=== PATIENT | female | born 1965 | race Caucasian/White ===

== ENCOUNTER 2018-01-16 07:20 | Outpatient (CLI) | payer MEDICARE, OTHER ==
[~2018-01-16 07:20] MED LIST: ASPI-611 PO; CARB1TAB23 PO; CARB1TAB42 PO; HYDR-565 PO; METO50TA7 PO; RASA1TAB4 PO
== END 2018-01-16 23:59 | disposition home or self-care (01) ==
LOC: RT 07:20
PROVIDERS: ATTEND Internal Medicine
DX: R06.02 Shortness of breath (principal)
CPT/HCPCS: 85018; 94010; 94727; 94729

== ENCOUNTER 2019-02-27 12:29 | Emergency (ER) | payer MEDICARE, OTHER ==
[~2019-02-27] VITALS: Ht 165.1 cm; Wt 27.3 kg
[~2019-02-27 12:29] MED LIST changes: +HYDR-4353 PO; -HYDR-565 PO
[2019-02-27] MEDS ORDERED: morphine 4 MG/ML inj SYRINge IV ONE (13:35)
[2019-02-27 13:59] LABS: BASOPHILS % (AUTO) 0.5 % (0-1); EOSINOPHILS # (AUTO) 0.1 X10'3 (0-0.9); EOSINOPHILS % (AUTO) 1.1 % (0-6); HEMATOCRIT 40.1 % (35.0-45.0); HEMOGLOBIN 13.8 g/dl (12.0-16.0); LYMPHOCYTES # (AUTO) 2.2 X10'3 (1.1-4.8); LYMPHOCYTES % (AUTO) 23.9 % (21-51); MEAN CORPUSCULAR HEMOGLOBIN 30.4 PG (27.0-31.0); MEAN CORPUSCULAR HGB CONC 34.3 g/dL (33.0-36.5); MEAN CORPUSCULAR VOLUME 88.7 FL (78-98); MEAN PLATELET VOLUME 8.9 FL (7.4-10.4); MONOCYTES # (AUTO) 0.6 X10'3 (0-0.9); MONOCYTES % (AUTO) 5.9 % (2-12); NEUTROPHILS # (AUTO) 6.4 X10'3 (1.8-7.7); NEUTROPHILS % (AUTO) 68.6 % (42-75); PLATELET COUNT 268 X10'3 (140-440); RED BLOOD COUNT 4.52 X10'6 (4.20-5.60); WHITE BLOOD COUNT 9.3 X10'3 (4.5-11.0)
[2019-02-27 14:09] LABS: ALANINE AMINOTRANSFERASE 10 U/L (12-78); ALBUMIN 4.1 G/DL (3.4-5.0); ALBUMIN/GLOBULIN RATIO 1.4 (1.1-1.5); ALKALINE PHOSPHATASE 90 IU/L (46-116); ANION GAP 11 (8-16); ASPARTATE AMINO TRANSFERASE 18 U/L (10-37); BILIRUBIN,TOTAL 0.9 MG/DL (0.1-1.0); BLOOD UREA NITROGEN 25 MG/DL (7-18); BUN/CREATININE RATIO 32.1 (6.6-38.0); CHLORIDE 111 MMOL/L (99-107); CREATININE 0.78 MG/DL (0.40-0.90); GLUCOSE 95 MG/DL (70-104); POTASSIUM 3.1 MMOL/L (3.5-5.1); SODIUM 146 MMOL/L (135-145); TOTAL CARBON DIOXIDE 24.4 MMOL/L (24-32); TOTAL PROTEIN 7.1 G/DL (6.4-8.2); eGFR 77 ML/MIN
[2019-02-27 14:42] LABS: CLARITY,URINE CLOUDY (Clear); COLOR,URINE YELLOW (Yellow); GLUCOSE, URINE NEGATIVE (Neg); KETONES,URINE 15 mg/dl (Neg); LEUKOCYTE ESTERASE ,URINE NEGATIVE (Neg); NITRITES, URINE NEGATIVE (Neg); OCCULT BLOOD,URINE NEGATIVE (Neg); PH,URINE 5.5 (4.8-8.0); PROTEIN,URINE TRACE mg/dl (Neg)
[2019-02-27 14:47] LABS: UA COLLECTION TYPE CLN CATCH MIDSTREAM
[2019-02-27 14:48] LABS: BACTERIA,URINE 2+ /HPF (Neg); CAL OXALATE CRYSTALS 4+ /HPF (NEGATIVE); HYALINE CASTS 0-3 /LPF (NEGATIVE); MUCUS STRANDS MODERATE /LPF (Neg); SQUAMOUS EPITHELIAL CELL,UR FEW /LPF (FEW)
[2019-02-27 14:49] LABS: RBC,URINE 0-2 /HPF (0-2); WBC,URINE 0-4 /HPF (0-4)
[2019-02-27] MEDS ORDERED: ketamine 10mg/ml 20ml inj IV ONE (14:55)
[2019-02-27] MEDS ORDERED: normal saline 1000ML IV soln IVB ONE ×2 (16:05)
[2019-02-27] MEDS ORDERED: CHOL100044 PO (16:08)
[2019-02-27] MEDS ORDERED: CYAN-51 PO (16:08)
[2019-02-27] MEDS ORDERED: CARB1CAP5 PO (16:08)
[2019-02-27] MEDS ORDERED: potassium Cl 20 mEq SR tablet PO ONE (16:50)
[2019-02-27] MEDS ORDERED: LYR25C PO (17:28)
[2019-02-27 17:49] VITALS: BP 114/88
== END 2019-02-27 17:43 | disposition home or self-care (01) ==
LOC: ER 12:29
DX: M54.2 Cervicalgia (principal); G20 Parkinson's disease; R51 Headache; M79.601 Pain in right arm; Z90.49 Acquired absence of other specified parts of digestive tract; Z98.890 Other specified postprocedural states; Z79.82 Long term (current) use of aspirin; Z79.899 Other long term (current) drug therapy
CPT/HCPCS: 36415; 72141; 80053; 81001; 82948; 83605; 84145; 85025; 87040; 96361; 96374; 96375; 99284; J2270; J7030

== ENCOUNTER 2020-11-19 06:22 | Inpatient (IN) | payer MEDICARE, OTHER ==
[2020-11-09 12:29] LABS: CLARITY,URINE CLOUDY (Clear); COLOR,URINE YELLOW (Yellow); GLUCOSE, URINE NEGATIVE (Neg); KETONES,URINE TRACE mg/dl (Neg); LEUKOCYTE ESTERASE ,URINE NEGATIVE (Neg); OCCULT BLOOD,URINE NEGATIVE (Neg); PROTEIN,URINE NEGATIVE (Neg); UROBILINOGEN,URINE 0.2 E.U/dL (0.2-1.0)
[2020-11-09 12:30] LABS: BASOPHILS % (AUTO) 0.3 % (0-1); EOSINOPHILS # (AUTO) 0.3 X10'3 (0-0.9); EOSINOPHILS % (AUTO) 5.3 % (0-6); LYMPHOCYTES # (AUTO) 1.6 X10'3 (1.1-4.8); LYMPHOCYTES % (AUTO) 27.3 % (21-51); MEAN CORPUSCULAR HEMOGLOBIN 30.3 PG (27.0-31.0); MEAN CORPUSCULAR HGB CONC 33.6 g/dL (33.0-36.5); MEAN CORPUSCULAR VOLUME 90.2 FL (78-98); MONOCYTES # (AUTO) 0.4 X10'3 (0-0.9); MONOCYTES % (AUTO) 6.6 % (2-12); NEUTROPHILS # (AUTO) 3.5 X10'3 (1.8-7.7); NEUTROPHILS % (AUTO) 60.5 % (42-75); PRE OP HEMATOCRIT 40.6 % (35.0-45.0); PRE OP HEMOGLOBIN 13.6 g/dL (12.0-16.0); PRE OP PLATELET COUNT 257 X10'3 (140-440); RED CELL DISTRIBUTION WIDTH 11.6 % (11.5-14.5); UA COLLECTION TYPE CLN CATCH MIDSTREAM
[2020-11-09 12:34] LABS: BACTERIA,URINE 2+ /HPF (Neg); RBC,URINE 0-2 /HPF (0-2); URIC ACID CRYSTALS 3+ /HPF (NEGATIVE); WBC,URINE 0-4 /HPF (0-4)
[2020-11-09 12:35] LABS: SQUAMOUS EPITHELIAL CELL,UR FEW /LPF (FEW)
[2020-11-09 12:48] LABS: ALBUMIN 3.8 G/DL (3.4-5.0); ALBUMIN/GLOBULIN RATIO 1.2 (1.1-1.5); ALKALINE PHOSPHATASE 92 IU/L (46-116); BLOOD UREA NITROGEN 21 MG/DL (7-18); BUN/CREATININE RATIO 32.3 (6.6-38.0); CALCIUM 8.9 MG/DL (8.5-10.1); CHLORIDE 108 MMOL/L (99-107); CREATININE 0.65 MG/DL (0.40-0.90); PRE OP ALT 9 U/L (30-65); PRE OP ANION GAP 5 (8-16); PRE OP AST 14 U/L (10-37); PRE OP BILIRUB, TOTAL 0.6 MG/DL (0.0-1.0); PRE OP GLUCOSE 101 MG/DL (70-104); PRE OP SODIUM 145 MMOL/L (135-145); TOTAL CARBON DIOXIDE 32.1 MMOL/L (24-32); TOTAL PROTEIN 7.1 G/DL (6.4-8.2); eGFR > 90 ML/MIN
[2020-11-09 13:04] LABS: NITRITES, URINE NEGATIVE (Neg)
[2020-11-19] VITALS (19 sets, daily range): BP systolic 100–154; BP diastolic 52–71
[~2020-11-19] VITALS: Ht 165.1 cm; Wt 85.2 kg
[~2020-11-19 06:22] MED LIST changes: -ASPI-611 PO; +CARB1CAP5 PO; -CARB1TAB23 PO; -CARB1TAB42 PO; +CHOL100044 PO; -METO50TA7 PO; +MIRA25TA PO; -RASA1TAB4 PO; +cefazolin/dext.iso 2gm/100ml IV ONE; +famotidine 20mg tablet PO ONE; +ringers solution, lacted 1,000 ML IV SCH
[2020-11-19] MEDS ORDERED: proCHLORperazine 10 MG/2 ml inj IV PRN (08:05)
[2020-11-19] MEDS ORDERED: ondansetron/PF 4mg/2ml inj IV PRN ×2 (08:05→13:45)
[2020-11-19] MEDS ORDERED: morphine 4 MG/ML inj SYRINge IV PRN (08:05)
[2020-11-19] MEDS ORDERED: morphine 2 MG/ML inj. syringe IV PRN (08:05)
[2020-11-19] MEDS ORDERED: meperidine/PF 25mg/ml syringe IV PRN ×3 (08:05)
[2020-11-19] MEDS ORDERED: ringers solution, lacted 1,000 ML IV SCH (08:05)
[2020-11-19] MEDS ORDERED: ROPIVAcaine 0.2%/PF PUMP/bolus 545 ML POPLITEAL SCH (08:40)
[2020-11-19] MEDS ORDERED: ROPIVAcaine 0.2% (10 MG/5 ML) BOLUS INJECTION POPLITEAL PRN (08:40)
[2020-11-19] MEDS ORDERED: mupirocin 2% ointment 22GM ONE (08:53)
[2020-11-19] MEDS ORDERED: BUPIVAcaine/PF 2.5 mg/ml (0.25%) 30ml vial ONE (08:53)
[2020-11-19] MEDS ORDERED: fentaNYL/PF 50MCG/1 ML 2ML syringe ONE (08:56)
[2020-11-19] MEDS ORDERED: MIDAZolam 1 MG/ML 5ML VIAL ONE ×2 (08:57→12:39)
[2020-11-19] MEDS ORDERED: ROPIVAcaine 0.5% (5mg/ml) 30ml vial ONE (08:58)
[2020-11-19] MEDS ORDERED: BUPIVAcaine/PF 7.5mg/ml (0.75%) 10ml vial ONE (09:52)
[2020-11-19] MEDS ORDERED: bacitracin 15gm ointment TP ONE (11:13)
[2020-11-19] MEDS ORDERED: meperidine/PF 50mg/ml syringe ONE (12:41)
--- NOTE | 2020-11-19 13:03 | NUR ---
Received from OR via dimitry, accompanied by Anesthesiologist José and report given by Anesthesiolgist. VS WNL, mask to 10L sats 96%. 20G left hand IVF LR 100cc/hr. Left foot dressed and wrapped with gauze, elevated and ice bag applied. Addendum: 11/19/20 at 1435 by Latoya Layne RN Please disregard - incorrect patient
--- NOTE | 2020-11-19 13:40 | NUR ---
RECEIVED PT FROM OR VIA BED WITH ANESTHESIA, DR. MANE-REPORT GIVEN. VSS, PT WAKING UP-CALM, PIV 20G TO RIGHT HAND-LR RUNNING RE706DC/HR, RIGHT FOOT ELEVATED, WRAPPED WITH KATHARINE-NO DRAINAGE NOTED, DRSG-CDI, NOTED TO HAVE 2 PINS VISIBLE IN 2ND AND 3RD TOES, PT DENIES PAIN OR FEELING IN TOES OF RIGHT FOOT, TOES PINK, WARM WITH + CAP REFILL, BLOCK WORKING WITH ON-Q CATHETER IN PLACE, F/C IN PLACE-WILL BE REMOVED PRIOR TO TRANSFER TO FLOOR PER DR. MANE. CALLED TO ASSURE PT DOING WELL.
[2020-11-19] MEDS ORDERED: metoclopramide 5 mg/ml inj IV PRN (13:45)
[2020-11-19] MEDS ORDERED: HYDROcodone/acetaminophen 10/325mg tab PO PRN ×2 (13:45→14:00)
[2020-11-19] MEDS ORDERED: magnesium hydroxide 30ml (MOM) UD suspension PO PRN (13:45)
[2020-11-19] MEDS ORDERED: diphenhydrAMINE 25mg capsule PO PRN ×2 (13:45)
[2020-11-19] MEDS ORDERED: bisacodyl 10mg suppository rectal RC PRN (13:45)
[2020-11-19] MEDS ORDERED: HYDROmorphone inj. 0.5 MG/0.5 ML DISP.SYRIN IV PRN (13:45)
[2020-11-19] MEDS ORDERED: acetaminophen 325mg tablet PO PRN (13:45)
--- NOTE | 2020-11-19 14:45 | NUR ---
Report received from TAILMANAnne Marie
--- NOTE | 2020-11-19 15:00 | NUR ---
PT A/O X 4 AND COMFORTABLE-DENIES PAIN, VSS, RIGHT FOOT-ELEVATED, WRAPPED WITH KATHARINE/SPLINT-PINSX2 VISIBLE, NO DRAINAGE NOTED-DSRG CDI, ON-Q ATTACHED AND RUNNING AT 2ML/HR-PT AND EDUCATED REGARDING PUMP USE, TOES TO RIGHT FOOT-PINK WARM, +CAP REFILL, STILL NO SENSATION D/T BLOCK, F/C REMOVED-BALLOON INTACT, 900CC OUT. PIV 20G WITH LR RUNNING AT 100ML/HR. REPORT GIVEN TO EMILY RN-ALL QUESTIONS ANSWERED, TAKEN WITH ALL BELONGINGS TO ROOM 4012A, BED LOW AND LOCKED, MONITORS ATTACHED CALL SEALS IN REACH, IN ROOM ALONG WITH PRIMARY RN.
[2020-11-19] MEDS: ceFAZolin/D5W- 1GM premix 50 ML IV SCH ×2 (16:29→23:50)
[2020-11-19] MEDS: potassium cl 20mEq in 1/2 NS 1,000 ML IV SCH ×2 (16:30→21:45)
[2020-11-19] MEDS: CARBIDOPA PO SCH (17:26)
[2020-11-19] MEDS: LEVODOPA PO SCH (17:26)
[2020-11-19] MEDS ORDERED: magnesium Cl slow-release 64mg tablet PO PRN (18:10)
[2020-11-19] MEDS ORDERED: magnesium 4gm in 100ml NS 100 ML IV PRN (18:10)
[2020-11-19] MEDS ORDERED: potassium Cl 20 mEq SR tablet PO PRN ×2 (18:10)
[2020-11-19] MEDS ORDERED: potassium Cl 40MEQ/1/2NS 520ml 520 ML IV PRN (18:10)
--- NOTE | 2020-11-19 18:15 | NUR ---
Problems reprioritized. Patient report given, questions answered & plan of care reviewed with RAMON Hill.
[2020-11-19] MEDS: LORazepam 0.5 MG tablet PO PRN ×2 (19:03→22:54)
[2020-11-19] MEDS: K and/or MAG REPLACEMENT MC SCH (20:00)
[2020-11-19] MEDS ORDERED: mirabegron 25mg ER tablet PO SCH (21:00)
[2020-11-19] MEDS ORDERED: sennosides 8.6mg tablet PO SCH (21:00)
[2020-11-19] MEDS: HYDROcodone/acetaminophen 10/325mg tab PO PRN (23:42)
[2020-11-20 02:00] VITALS: BP 98/53
[2020-11-20] MEDS: potassium cl 20mEq in 1/2 NS 1,000 ML IV SCH ×2 (02:13→10:41)
--- NOTE | 2020-11-20 03:10 | NUR ---
reviewed and agree with SRN assessment
[2020-11-20 06:00] VITALS: BP 134/66
[2020-11-20 06:36] LABS: BASOPHILS % (AUTO) 0.2 % (0-1); EOSINOPHILS % (AUTO) 0 % (0-6); HEMATOCRIT 34.9 % (35.0-45.0); HEMOGLOBIN 12.2 g/dl (12.0-16.0); LYMPHOCYTES # (AUTO) 0.9 X10'3 (1.1-4.8); LYMPHOCYTES % (AUTO) 8.8 % (21-51); MEAN CORPUSCULAR HEMOGLOBIN 31.5 PG (27.0-31.0); MEAN CORPUSCULAR VOLUME 89.9 FL (78-98); MEAN PLATELET VOLUME 8.8 FL (7.4-10.4); MONOCYTES # (AUTO) 0.8 X10'3 (0-0.9); MONOCYTES % (AUTO) 8.2 % (2-12); NEUTROPHILS # (AUTO) 8.4 X10'3 (1.8-7.7); NEUTROPHILS % (AUTO) 82.8 % (42-75); PLATELET COUNT 229 X10'3 (140-440); RED BLOOD COUNT 3.88 X10'6 (4.20-5.60); RED CELL DISTRIBUTION WIDTH 11.8 % (11.5-14.5); WHITE BLOOD COUNT 10.1 X10'3 (4.5-11.0)
[2020-11-20 07:09] LABS: ALANINE AMINOTRANSFERASE 10 U/L (12-78); ALBUMIN 3.2 G/DL (3.4-5.0); ALBUMIN/GLOBULIN RATIO 1.1 (1.1-1.5); ALKALINE PHOSPHATASE 77 IU/L (46-116); ANION GAP 9 (8-16); ASPARTATE AMINO TRANSFERASE 25 U/L (10-37); BILIRUBIN,TOTAL 0.8 MG/DL (0.1-1.0); BLOOD UREA NITROGEN 12 MG/DL (7-18); BUN/CREATININE RATIO 20.3 (6.6-38.0); CALCIUM 8.7 MG/DL (8.5-10.1); CHLORIDE 108 MMOL/L (99-107); CREATININE 0.59 MG/DL (0.40-0.90); GLUCOSE 124 MG/DL (70-104); PHOSPHORUS 3.2 MG/DL (2.3-4.5); POTASSIUM 3.7 MMOL/L (3.5-5.1); SODIUM 144 MMOL/L (135-145); TOTAL CARBON DIOXIDE 26.9 MMOL/L (24-32); TOTAL PROTEIN 6.1 G/DL (6.4-8.2); eGFR > 90 ML/MIN
[2020-11-20] MEDS: K and/or MAG REPLACEMENT MC SCH (08:00)
[2020-11-20] MEDS: CARBIDOPA PO SCH ×2 (08:01→13:20)
[2020-11-20] MEDS: LEVODOPA PO SCH ×2 (08:01→13:20)
[2020-11-20] MEDS ORDERED: aspirin 325mg tablet PO SCH (08:30)
[2020-11-20] MEDS: HYDROcodone/acetaminophen 10/325mg tab PO PRN (09:12)
[2020-11-20 10:00] VITALS: BP 113/64
[2020-11-20] MEDS ORDERED: ASPI-1 PO (11:22)
--- NOTE | 2020-11-20 13:50 | NUR ---
PT DISCHARGED IN STABLE CONDITION. LEFT FACILITY IN PRIVATE VEHICLE WITH . IV DC CANULA INTACT. ON Q BALL IN PLACE. DISCHARGE INSTRUCTIONS GIVEN, PT AWARE SHE NEEDS TO FOLLOW UP WITH DR MCCLOUD. STATES HE HAS WHEELCHAIR AND SCOOTER AT HOME. ALL BELONGINGS IN HAND.
[2020-11-23] MEDS ORDERED: cholecalciferol (vitamin D3) 1,000 unit (25mcg) tablet PO SCH (08:00)
== END 2020-11-20 13:50 | disposition home health service (06) | DRG 505 ==
LOC: PAS IN 06:22 → UNDOADMIN 06:22 → EDSTATUS 09:00 → PAS IN 13:44 → ORTHO 4S 15:03 → UNDODISIN 11-20 13:50
PROVIDERS: ADMIT Podiatrist Foot & Ankle Surgery; ATTEND Podiatrist Foot & Ankle Surgery
PROC: 0SGH07Z Fusion of Right Tarsal Joint with Autologous Tissue Substitute, Open Approach (ICD-10-PCS; 2020-11-19)
PROC: 0SNM0ZZ Release Right Metatarsal-Phalangeal Joint, Open Approach (ICD-10-PCS; 2020-11-19)
PROC: 0SH Lower Joints, Insertion (ICD-10-PCS; 2020-11-19)
PROC: 3E0T3BZ Introduction of Anesthetic Agent into Peripheral Nerves and Plexi, Percutaneous Approach (ICD-10-PCS; 2020-11-19)
PROC: 3E0T33Z Introduction of Anti-inflammatory into Peripheral Nerves and Plexi, Percutaneous Approach (ICD-10-PCS; 2020-11-19)
PROC: 0L8N0ZZ Division of Right Lower Leg Tendon, Open Approach (ICD-10-PCS; principal; 2020-11-19 08:52)
DX: M20.41 Other hammer toe(s) (acquired), right foot (principal); M79.671 Pain in right foot; M25.374 Other instability, right foot; M21.41 Flat foot [pes planus] (acquired), right foot; G20 Parkinson's disease; M19.071 Primary osteoarthritis, right ankle and foot; M21.071 Valgus deformity, not elsewhere classified, right ankle; Z82.49 Family history of ischemic heart disease and other diseases of the circulatory system; Z90.710 Acquired absence of both cervix and uterus; Z90.49 Acquired absence of other specified parts of digestive tract
CPT/HCPCS: 36415; 73620; 76000; 80053; 81001; 82948; 83735; 84100; 85025; 93005; 97116; 97161; 97530; A6223; A6253; A6449; A7000; C1713; C1750; G0378; J0690; J2175; J2250; J2795; J3010; J3480; J3490; J7120

== ENCOUNTER 2022-12-28 09:51 | Emergency (ER) | payer MEDICARE, OTHER ==
[~2022-12-28] VITALS: Ht 165.1 cm; Wt 81.6 kg
[~2022-12-28 09:51] MED LIST changes: +ASPI-1 PO; -cefazolin/dext.iso 2gm/100ml IV ONE; -famotidine 20mg tablet PO ONE; -ringers solution, lacted 1,000 ML IV SCH
[2022-12-28 11:34] LABS: BASOPHILS % (AUTO) 0.5 % (0-1); EOSINOPHILS # (AUTO) 0.1 X10'3 (0-0.9); EOSINOPHILS % (AUTO) 2.5 % (0-6); HEMATOCRIT 42.4 % (35.0-45.0); HEMOGLOBIN 14.4 g/dl (12.0-16.0); LYMPHOCYTES # (AUTO) 1.3 X10'3 (1.1-4.8); LYMPHOCYTES % (AUTO) 27.7 % (21-51); MEAN CORPUSCULAR HEMOGLOBIN 30.3 PG (27.0-31.0); MEAN CORPUSCULAR HGB CONC 33.9 g/dL (33.0-36.5); MEAN CORPUSCULAR VOLUME 89.4 FL (78-98); MEAN PLATELET VOLUME 9.7 FL (7.4-10.4); MONOCYTES # (AUTO) 0.4 X10'3 (0-0.9); MONOCYTES % (AUTO) 7.8 % (2-12); NEUTROPHILS % (AUTO) 61.5 % (42-75); PLATELET COUNT 247 X10'3 (140-440); RED BLOOD COUNT 4.74 X10'6 (4.20-5.60); RED CELL DISTRIBUTION WIDTH 12.3 % (11.5-14.5); WHITE BLOOD COUNT 4.9 X10'3 (4.5-11.0)
[2022-12-28 11:40] LABS: ALANINE AMINOTRANSFERASE 6 U/L (12-78); ALBUMIN 4.1 G/DL (3.4-5.0); ALBUMIN/GLOBULIN RATIO 1.2 (1.1-1.5); ALKALINE PHOSPHATASE 108 IU/L (46-116); ANION GAP 5 (8-16); ASPARTATE AMINO TRANSFERASE 20 U/L (10-37); BILIRUBIN,TOTAL 1.1 MG/DL (0.1-1.0); BLOOD UREA NITROGEN 18 MG/DL (7-18); BUN/CREATININE RATIO 24.3 (10.0-20.0); CALCIUM 9.3 MG/DL (8.5-10.1); CHLORIDE 105 MMOL/L (99-107); CREATININE 0.74 MG/DL (0.40-0.90); GLUCOSE 100 MG/DL (70-104); POTASSIUM 3.7 MMOL/L (3.5-5.1); SODIUM 141 MMOL/L (135-145); TOTAL CARBON DIOXIDE 30.6 MMOL/L (24-32); TOTAL PROTEIN 7.4 G/DL (6.4-8.2); eGFR 80 ML/MIN
[2022-12-28 11:43] VITALS: BP 112/79
[2022-12-28] MEDS ORDERED: cloNIDine 0.1 mg tablet PO ONE (12:55)
[2022-12-28] MEDS ORDERED: aspirin 325mg tablet PO ONE (13:25)
[2022-12-28 13:33] LABS: CLARITY,URINE SLIGHTLY CLOUDY (Clear); COLOR,URINE YELLOW (Yellow); GLUCOSE, URINE NEGATIVE (Neg); KETONES,URINE 15 mg/dl (Neg); LEUKOCYTE ESTERASE ,URINE NEGATIVE (Neg); NITRITES, URINE NEGATIVE (Neg); OCCULT BLOOD,URINE NEGATIVE (Neg); PH,URINE 6.5 (4.8-8.0); PROTEIN,URINE NEGATIVE (Neg); UROBILINOGEN,URINE 0.2 E.U/dL (0.2-1.0)
[2022-12-28 13:36] LABS: UA COLLECTION TYPE VOIDED
[2022-12-28 13:50] LABS: MUCUS STRANDS MANY /LPF (Neg); SQUAMOUS EPITHELIAL CELL,UR FEW /LPF (FEW)
[2022-12-28 13:52] LABS: RBC,URINE 0-2 /HPF (0-2); WBC,URINE 0-4 /HPF (0-4)
[2022-12-28 13:58] LABS: BACTERIA,URINE FEW /HPF (Neg)
[2022-12-28] MEDS ORDERED: MECL-159 PO (14:55)
== END 2022-12-28 15:24 | disposition home or self-care (01) ==
LOC: ER 09:52
DX: I16.0 Hypertensive urgency (principal); R42 Dizziness and giddiness; G20 Parkinson's disease; Z79.899 Other long term (current) drug therapy
CPT/HCPCS: 36415; 70450; 80053; 81001; 83880; 84484; 85025; 99284

== ENCOUNTER 2023-10-12 09:37 | Emergency (ER) | payer MEDICARE, OTHER ==
[~2023-10-12] VITALS: Ht 172.7 cm; Wt 84.0 kg
[~2023-10-12 09:37] MED LIST changes: +MECL-302 PO
[2023-10-12 10:59] LABS: BASOPHILS % (AUTO) 0.4 % (0-1); EOSINOPHILS % (AUTO) 0.6 % (0-6); HEMATOCRIT 41.5 % (35.0-45.0); LYMPHOCYTES % (AUTO) 14.7 % (21-51); MEAN CORPUSCULAR HEMOGLOBIN 30.4 PG (27.0-31.0); MEAN CORPUSCULAR HGB CONC 33.8 g/dL (33.0-36.5); MEAN CORPUSCULAR VOLUME 89.7 FL (78-98); MEAN PLATELET VOLUME 9.3 FL (7.4-10.4); MONOCYTES # (AUTO) 0.5 X10'3 (0-0.9); MONOCYTES % (AUTO) 7.7 % (2-12); NEUTROPHILS % (AUTO) 76.6 % (42-75); PLATELET COUNT 274 X10'3 (140-440); RED BLOOD COUNT 4.62 X10'6 (4.20-5.60); RED CELL DISTRIBUTION WIDTH 12.8 % (11.5-14.5); WHITE BLOOD COUNT 6.5 X10'3 (4.5-11.0)
[2023-10-12 11:34] LABS: BILIRUBIN,URINE SMALL (Neg); CLARITY,URINE CLEAR (Clear); COLOR,URINE YELLOW (Yellow); GLUCOSE, URINE NEGATIVE (Neg); KETONES,URINE TRACE mg/dl (Neg); LEUKOCYTE ESTERASE ,URINE TRACE (Neg); NITRITES, URINE NEGATIVE (Neg); OCCULT BLOOD,URINE NEGATIVE (Neg); PH,URINE 5.5 (4.8-8.0); PROTEIN,URINE NEGATIVE (Neg); UROBILINOGEN,URINE 0.2 E.U/dL (0.2-1.0)
[2023-10-12 11:40] LABS: ALANINE AMINOTRANSFERASE 7 U/L (12-78); ALBUMIN 3.8 G/DL (3.4-5.0); ALBUMIN/GLOBULIN RATIO 1.1 (1.1-1.5); ALKALINE PHOSPHATASE 85 IU/L (46-116); ANION GAP 11 (8-16); BILIRUBIN,DIRECT 0.2 MG/DL (0-0.3); BILIRUBIN,TOTAL 0.8 MG/DL (0.1-1.0); BLOOD UREA NITROGEN 21 MG/DL (7-18); BUN/CREATININE RATIO 30.4 (10.0-20.0); CALCIUM 8.9 MG/DL (8.5-10.1); CHLORIDE 107 MMOL/L (99-107); CREATININE 0.69 MG/DL (0.40-0.90); GLUCOSE 110 MG/DL (70-104); POTASSIUM 3.5 MMOL/L (3.5-5.1); SODIUM 145 MMOL/L (135-145); THYROID STIMULATING HORMONE 0.97 ulU/ml (0.34-4.50); TOTAL CARBON DIOXIDE 27.1 MMOL/L (24-32); TOTAL PROTEIN 7.3 G/DL (6.4-8.2); eCRCL 87 ML/MIN; eGFR 87 ML/MIN
[2023-10-12 11:51] LABS: UA COLLECTION TYPE NON-SPECIFIED
[2023-10-12 11:52] LABS: URINE AMPHETAMINE SCREEN NEGATIVE (Neg); URINE BARBITUATE SCREEN NEGATIVE (Neg); URINE BENZODIAZEPINES SCREEN NEGATIVE (Neg); URINE CANNABINOID SCREEN NEGATIVE (Neg); URINE COCAINE SCREEN NEGATIVE (Neg); URINE METHADONE SCREEN NEGATIVE (Neg); URINE OPIATE SCREEN NEGATIVE (Neg); URINE PHENCYCLIDINE SCREEN NEGATIVE (Neg)
[2023-10-12 11:52] LABS: ASPARTATE AMINO TRANSFERASE 11 U/L (10-37)
[2023-10-12 11:53] LABS: ETHANOL < 10 MG/DL (<10)
[2023-10-12 11:53] LABS: BACTERIA,URINE FEW /HPF (Neg); MUCUS STRANDS MANY /LPF (Neg); SQUAMOUS EPITHELIAL CELL,UR MODERATE /LPF (FEW)
[2023-10-12 11:54] LABS: CAL OXALATE CRYSTALS 3+ /HPF (NEGATIVE)
[2023-10-12] MEDS ORDERED: cholecalciferol (vitamin D3) 1,000 unit (25mcg) tablet PO SCH (18:55)
[2023-10-12] MEDS: mirabegron 25mg ER tablet PO SCH (20:49)
[2023-10-12] MEDS: HYDROcodone/acetaminophen 10/325mg tab PO PRN (20:49)
[2023-10-13] MEDS: LORazepam 1 MG tablet PO ONE (01:36)
[2023-10-13] MEDS: ziprasidone IM 20mg inj **IM only IM ONE (01:46)
[2023-10-13] MEDS: LEVODOPA PO SCH (08:00)
[2023-10-13] MEDS: CARBIDOPA PO SCH (08:00)
[2023-10-13] MEDS: magnesium hydroxide 30ml (MOM) UD suspension PO ONE (19:47)
[2023-10-14] MEDS: docusate sod 100mg capsule PO ONE (07:15)
[2023-10-14] MEDS: magnesium hydroxide 30ml (MOM) UD suspension PO PRN (11:37)
[2023-10-14] MEDS: QUEtiapine 25mg tablet PO ONE (21:43)
[2023-10-14] MEDS: LORazepam 1 MG tablet PO PRN (23:54)
[2023-10-14] MEDS: haloperidol 5mg tablet PO PRN (23:54)
[2023-10-15] MEDS: LORazepam 2 mg/ml vial IM ONE ×2 (11:15→17:07)
[2023-10-15] MEDS ORDERED: PANT40TA54 PO (12:31)
[2023-10-15] MEDS ORDERED: CYCL-1 (12:31)
[2023-10-15] MEDS ORDERED: CELE-127 PO (12:31)
[2023-10-15] MEDS: ziprasidone IM 20mg inj **IM only IM ONE (17:09)
[2023-10-15] MEDS: cyclobenzaprine 10mg tablet PO SCH (21:00)
[2023-10-16] MEDS: pantoprazole 40mg Tablet.DR PO SCH (09:20)
[2023-10-16] MEDS: cholecalciferol (vitamin D3) 1,000 unit (25mcg) tablet PO SCH (19:19)
[2023-10-16] MEDS: amantadine 100 MG capsule PO SCH (19:20)
[2023-10-16] MEDS: quetiapine 100mg tablet PO SCH (19:20)
[2023-10-16] MEDS: celeCOXIB 100mg capsule PO PRN (19:21)
[2023-10-17] MEDS: quetiapine 100mg tablet PO ONE (00:55)
[2023-10-17 06:09] LABS: BILIRUBIN,URINE NEGATIVE (Neg); CLARITY,URINE SLIGHTLY CLOUDY (Clear); COLOR,URINE YELLOW (Yellow); GLUCOSE, URINE NEGATIVE (Neg); KETONES,URINE NEGATIVE (Neg); LEUKOCYTE ESTERASE ,URINE MODERATE (Neg); NITRITES, URINE NEGATIVE (Neg); OCCULT BLOOD,URINE NEGATIVE (Neg); PH,URINE 6.5 (4.8-8.0); PROTEIN,URINE NEGATIVE (Neg); UROBILINOGEN,URINE 0.2 E.U/dL (0.2-1.0)
[2023-10-17 06:27] LABS: UA COLLECTION TYPE CLN CATCH MIDSTREAM
[2023-10-17 06:42] LABS: BACTERIA,URINE 2+ /HPF (Neg)
[2023-10-17 06:43] LABS: MUCUS STRANDS MODERATE /LPF (Neg)
[2023-10-17 06:44] LABS: RBC,URINE 0-2 /HPF (0-2)
[2023-10-17 06:47] LABS: SQUAMOUS EPITHELIAL CELL,UR MODERATE /LPF (FEW); TRANSITIONAL EPI CELLS,URINE MANY /HPF
[2023-10-17 06:48] LABS: FINE GRANULAR CAST 0-3 /LPF (NEGATIVE)
[2023-10-18] MEDS: ziprasidone IM 20mg inj **IM only IM ONE (21:52)
[2023-10-20] MEDS: risperiDONE 0.5mg tablet PO STA ×2 (11:49→12:53)
[2023-10-20 17:25] LABS: BASOPHILS % (AUTO) 0.4 % (0-1); EOSINOPHILS % (AUTO) 0.8 % (0-6); HEMATOCRIT 40.1 % (35.0-45.0); LYMPHOCYTES % (AUTO) 17.2 % (21-51); MEAN CORPUSCULAR HEMOGLOBIN 30.9 PG (27.0-31.0); MEAN CORPUSCULAR HGB CONC 34.9 g/dL (33.0-36.5); MEAN CORPUSCULAR VOLUME 88.6 FL (78-98); MEAN PLATELET VOLUME 9.6 FL (7.4-10.4); MONOCYTES # (AUTO) 0.5 X10'3 (0-0.9); MONOCYTES % (AUTO) 7.8 % (2-12); NEUTROPHILS # (AUTO) 4.3 X10'3 (1.8-7.7); NEUTROPHILS % (AUTO) 73.8 % (42-75); PLATELET COUNT 257 X10'3 (140-440); RED BLOOD COUNT 4.52 X10'6 (4.20-5.60); RED CELL DISTRIBUTION WIDTH 12.7 % (11.5-14.5); WHITE BLOOD COUNT 5.9 X10'3 (4.5-11.0)
[2023-10-20 17:37] LABS: ALBUMIN 3.9 G/DL (3.4-5.0); ANION GAP 11 (8-16); APTT 29 SECONDS (22-32); BLOOD UREA NITROGEN 27 MG/DL (7-18); BUN/CREATININE RATIO 21.6 (10.0-20.0); CALCIUM 8.6 MG/DL (8.5-10.1); CHLORIDE 107 MMOL/L (99-107); CREATININE 1.25 MG/DL (0.40-0.90); GLUCOSE 126 MG/DL (70-104); PHOSPHORUS 3.8 MG/DL (2.3-4.5); POTASSIUM 4.2 MMOL/L (3.5-5.1); PROTHROMBIN TIME 11.2 SECONDS (9.0-12.0); SODIUM 143 MMOL/L (135-145); TOTAL CARBON DIOXIDE 24.8 MMOL/L (24-32); eCRCL 48 ML/MIN; eGFR 44 ML/MIN
[2023-10-20] MEDS: quetiapine 100mg tablet PO SCH (20:04)
[2023-10-23] MEDS: haloperidol lactate 5mg/ml inj IM ONE (00:10)
[2023-10-23 17:15] VITALS: BP 117/70; PULSE 93; TEMP 98.3; O2SAT 97
[2023-10-24 08:05] VITALS: RESP 16
== END 2023-10-24 11:05 | disposition home or self-care (01) ==
LOC: ER 09:37
DX: R44.3 Hallucinations, unspecified (principal); Z20.822 Contact with and (suspected) exposure to COVID-19; G20.A1 Parkinson's disease without dyskinesia, without mention of fluctuations; R79.1 Abnormal coagulation profile; Z79.899 Other long term (current) drug therapy; Z79.2 Long term (current) use of antibiotics; Z98.890 Other specified postprocedural states; Z90.49 Acquired absence of other specified parts of digestive tract
CPT/HCPCS: 36415; 70450; 70551; 80048; 80076; 80305; 80320; 81001; 82140; 83735; 84100; 84443; 85025; 85610; 85730; 87088; 87811; 96372; 99285; J3486

== ENCOUNTER 2023-11-19 04:15 | Emergency (ER) | payer MEDICARE, OTHER ==
[~2023-11-19] VITALS: Ht 165.1 cm; Wt 77.3 kg
[~2023-11-19 04:15] MED LIST changes: -ASPI-1 PO; +CELE-127 PO; +CYCL-1; -MECL-302 PO; +PANT40TA54 PO
[2023-11-19] MEDS: LORazepam 2 mg/ml vial IV ONE ×3 (04:56→06:41)
[2023-11-19 05:18] LABS: BASOPHILS % (AUTO) 0.3 % (0-1); EOSINOPHILS % (AUTO) 0.4 % (0-6); HEMATOCRIT 37.3 % (35.0-45.0); HEMOGLOBIN 12.9 g/dl (12.0-16.0); LYMPHOCYTES # (AUTO) 1.3 X10'3 (1.1-4.8); LYMPHOCYTES % (AUTO) 14.6 % (21-51); MEAN CORPUSCULAR HEMOGLOBIN 30.9 PG (27.0-31.0); MEAN CORPUSCULAR HGB CONC 34.5 g/dL (33.0-36.5); MEAN CORPUSCULAR VOLUME 89.5 FL (78-98); MEAN PLATELET VOLUME 9.5 FL (7.4-10.4); MONOCYTES # (AUTO) 0.7 X10'3 (0-0.9); MONOCYTES % (AUTO) 7.6 % (2-12); NEUTROPHILS # (AUTO) 6.9 X10'3 (1.8-7.7); NEUTROPHILS % (AUTO) 77.1 % (42-75); PLATELET COUNT 268 X10'3 (140-440); RED BLOOD COUNT 4.17 X10'6 (4.20-5.60); RED CELL DISTRIBUTION WIDTH 12.5 % (11.5-14.5); WHITE BLOOD COUNT 8.9 X10'3 (4.5-11.0)
[2023-11-19 05:36] LABS: ALBUMIN 3.7 G/DL (3.4-5.0); ANION GAP 11 (8-16); BLOOD UREA NITROGEN 25 MG/DL (7-18); BUN/CREATININE RATIO 29.1 (10.0-20.0); CALCIUM 9.2 MG/DL (8.5-10.1); CHLORIDE 105 MMOL/L (99-107); CREATININE 0.86 MG/DL (0.40-0.90); GLUCOSE 95 MG/DL (70-104); POTASSIUM 3.4 MMOL/L (3.5-5.1); SODIUM 144 MMOL/L (135-145); TOTAL CARBON DIOXIDE 28.2 MMOL/L (24-32); eCRCL 63 ML/MIN; eGFR 67 ML/MIN
[2023-11-19 05:40] LABS: ETHANOL < 10 MG/DL (<10)
[2023-11-19 07:09] LABS: BILIRUBIN,URINE NEGATIVE (Neg); CLARITY,URINE SLIGHTLY CLOUDY (Clear); COLOR,URINE YELLOW (Yellow); GLUCOSE, URINE NEGATIVE (Neg); KETONES,URINE 15 mg/dl (Neg); LEUKOCYTE ESTERASE ,URINE NEGATIVE (Neg); NITRITES, URINE NEGATIVE (Neg); OCCULT BLOOD,URINE NEGATIVE (Neg); PROTEIN,URINE TRACE mg/dl (Neg); UROBILINOGEN,URINE 0.2 E.U/dL (0.2-1.0)
[2023-11-19 07:19] LABS: UA COLLECTION TYPE CLN CATCH MIDSTREAM
[2023-11-19 07:21] LABS: MUCUS STRANDS MANY /LPF (Neg); SQUAMOUS EPITHELIAL CELL,UR FEW /LPF (FEW)
[2023-11-19 07:23] LABS: AMORPHOUS URATES 1+; BACTERIA,URINE FEW /HPF (Neg); CAL OXALATE CRYSTALS 4+ /HPF (NEGATIVE)
[2023-11-19 08:02] LABS: URINE AMPHETAMINE SCREEN NEGATIVE (Neg); URINE BARBITUATE SCREEN NEGATIVE (Neg); URINE BENZODIAZEPINES SCREEN NEGATIVE (Neg); URINE CANNABINOID SCREEN NEGATIVE (Neg); URINE COCAINE SCREEN NEGATIVE (Neg); URINE METHADONE SCREEN NEGATIVE (Neg); URINE OPIATE SCREEN NEGATIVE (Neg); URINE PHENCYCLIDINE SCREEN NEGATIVE (Neg)
[2023-11-19 12:37] VITALS: BP 125/78; PULSE 88; RESP 13; TEMP 98.1; O2SAT 95
== END 2023-11-19 12:36 | disposition home or self-care (01) ==
LOC: ER 04:16
DX: S00.81XA Abrasion of other part of head, initial encounter (principal); G20.A1 Parkinson's disease without dyskinesia, without mention of fluctuations; F06.71 Mild neurocognitive disorder due to known physiological condition with behavioral disturbance; W19.XXXA Unspecified fall, initial encounter; Y93.89 Activity, other specified; Y92.59 Other trade areas as the place of occurrence of the external cause; Y99.8 Other external cause status
CPT/HCPCS: 36415; 70450; 71045; 72125; 80048; 80305; 80320; 81001; 82140; 84484; 85025; 87088; 93005; 96374; 96376; 99285; J2060; C1758